=== PATIENT | male | born 1975 | race Caucasian/White ===

== ENCOUNTER 2020-04-18 17:52 | Emergency (ER) | payer MEDICARE, MEDICAID, SELFPAY ==
[2020-04-18 18:48] VITALS: BP 119/61; PULSE 65; RESP 19; RESP 20; TEMP 37.3; O2SAT 97; BMI 18.7
--- NOTE | 2020-04-18 18:55 | XR_ITS ---
EXAMINATION: XR CHEST CLINICAL INFORMATION: Coughing. COMPARISON: None TECHNIQUE: Frontal view of the chest was obtained. FINDINGS: The lungs are well-expanded and clear of acute pneumonic process. There is minimal prominent interstitial markings in both lungs. The heart size and pulmonary vascularity is normal. No gross bony abnormality seen. XR/XR chest 1V IMPRESSION: No acute pneumonic consolidation. Minimal prominent interstitial markings in both lungs.
--- NOTE | 2020-04-18 19:34 | ED_ITS ---
HPI - General Adult General Chief complaint: General Medical Stated complaint: covid symptoms Source: patient Mode of arrival: ambulatory Limitations: no limitations History of Present Illness HPI narrative: Patient presents to ED for URI symptoms. Patient states coughing, diarrhea, body aches, chills, and subjective fevers. Patient states this has been occurring 3 days. Patient states no shortness of breath, swelling of lower extremity, calf pain, or weakness. Related Data Previous Rx's Medication Instructions Recorded albuterol sulfate 2 puff INHALATION QID PRN #18 g 04/18/20 benzonatate [Tessalon Perles] 100 mg PO TID PRN #15 cap 04/18/20 prednisone 40 mg PO DAILY 5 Days #10 tab 04/18/20 Allergies Allergy/AdvReac Type Severity Reaction Status Date / Time No Known Allergies Allergy Verified 04/18/20 18:55 Review of Systems Review of Systems: Yes all other systems are reviewed and are negative Constitutional: Constitutional: Reports as per HPI, Reports no additional constitutional complaints, Reports body ache(s), Reports chills and Reports fever(s) Eyes: Eyes: Reports as per HPI and Reports no additional eye complaints ENT: Reports system reviewed and no additional complaints, except as documented and Reports as per HPI Cardiovascular: Cardiovascular: Reports as per HPI, Reports no additional cardiovascular complaints, Denies chest pain, Denies chest pain at rest, Denies chest pain with activity, Denies Epigastric Pain, Denies dyspnea on exertion, Denies orthopnea and Denies paroxysmal nocturnal dyspnea Respiratory: Respiratory: Reports as per HPI, Reports no additional respiratory complaints, Reports chest congestion, Reports cough and Denies dyspnea on exertion Gastrointestinal: Gastrointestinal: Reports as per HPI, Reports no additional gastrointestinal complaints, Denies abdominal pain and Reports diarrhea Genitourinary: Genitourinary: Reports no additional male genitourinary complaints and Reports as per HPI Musculoskeletal: Musculoskeletal: Reports no additional musculoskeletal complaints and Reports as per HPI Neurologic: Reports system reviewed and no additional complaints, except as documented and Reports as per HPI Psychiatric: Psychiatric: Reports no additional psychiatric complaints and Reports as per HPI [facility] Social History Social History Alcohol intake: never Smoked in Last 30 Days: No Use of substances other than those prescribed or required for medical reasons: No Advance Directives: No Advance Directives Information Provided: No Physical Exam Vital Signs: Vital Signs: Last Vital Signs Temp 99.1 F 04/18/20 18:48 Pulse 65 04/18/20 18:48 Resp 20 04/18/20 18:48 BP 119/61 04/18/20 18:48 Pulse Ox 97 04/18/20 18:48 Body Mass Index 18.7 Const: General: cooperative, healthy appearing, comfortable, no acute distress, well developed, alert, awake and Physically active Orientation/consciousness: patient oriented x3 HENMT: Head: Yes normal to inspection, Yes No palpable skull fracture present, Yes normocephalic and Yes atraumatic Eyes: General: appearance normal, both eyes and all related structures Neck: Neck: Yes normal visual inspection, Yes full ROM, Yes no lymphadenopathy, Yes no meningeal signs, Yes trachea midline, Yes supple and No tender Chest: Chest palpation & inspection: normal inspection of the chest and normal palpation of entire chest wall Resp: Effort & Inspection: normal respiratory effort and able to speak in complete sentences Auscultation: clear to auscultation bilaterally and wheezes expiratory wheezes Cardio: Jugular venous distension: no JVD Heart sounds: S1 normal heart sound present and S2 normal heart sound present GI: Inspection: Yes normal to inspection and No abdominal wall ecchymosis Palpation (GI): Soft to palpation, not firm, nontender, no guarding and not rigid : General: No CVA tenderness and Yes no CVA tenderness Back/Spine/Pelvis: Back: no CVA tenderness, No CVA tenderness and No back tenderness Skin: General skin exam: no rashes or lesions noted and elasticity normal Neuro: General: patient oriented x3, no meningeal signs and CN's II-XI intact bilaterally Extrem: General: Yes normal to inspection and Yes full ROM Psych: Appearance: grossly normal, well kempt and not disheveled Course Course Course Narrative: Have mild expiratory wheezing. Patient admits to history of asthma but has no steroids or albuterol inhaler. Patient will be sent for chest x-ray to rule out any pneumonia. Patient will be swabbed for COVID-19 virus Reevaluation(s) Reevaluation #1: COVID swab pending. Patient does not want to wait for the results. Patient will be discharged with Tessalon Perles, albuterol, and prednisone Time: 19:46 Reevaluation #2: Patient was was called and informed his COVID swab was negative. Patient was told that although his COVID swab is negative if he still having symptoms he should continue quarantine and return to the ED if his symptoms worsen. Time: 23:02 Medical Decision Making MDM Narrative Medical decision making narrative: URI. Viral syndrome. Asthma exacerbation Lab Data Labs: Lab Results 04/18/20 Range/Units 19:14 Coronavirus (PCR) NEGATIVE (Negative) Influenza Type A (PCR) NEGATIVE (Negative) Influenza Type B (PCR) NEGATIVE (Negative) RSV RNA Qual (PCR) NEGATIVE (Negative) Discharge Plan Discharge Clinical Impression: Acute viral syndrome, Upper respiratory infection, Asthma Patient Disposition: Home, Self-Care Instructions: Asthma (ED), Viral Syndrome (ED) Additional Instructions: Return to the ED immediately for any chest pain, shortness of breath, dizziness, weakness, coughing up blood, swelling of lower extremities, calf pain, or any other concerning symptoms. Your COVID testing is pending. If the COVID test come back negative and he still having symptoms or it worsens recommend quarantine. Please follow-up with PCP Prescriptions: New albuterol sulfate 90 mcg/actuation HFA aerosol inhaler 2 puff inhalation QID PRN (Reason: asthma) Qty: 18 RF: 0 prednisone 20 mg tablet 40 mg PO DAILY 5 Days Qty: 10 RF: 0 benzonatate [Tessalon Perles] 100 mg capsule 100 mg PO TID PRN (Reason: cough) Qty: 15 RF: 0 Interventions: ED Discharge Assessment Last Done: 04/18/20 20:03 Discharge Date/Time: 04/18/20 20:14 Print Language: [place]
[2020-04-18 20:56] LABS: Influenza A PCR NEGATIVE (Negative); Influenza B PCR NEGATIVE (Negative); Resp Syncy Virus RNA Qual PCR NEGATIVE (Negative); SARS COV2 PCR INHOUSE NEGATIVE (Negative)
== END 2020-04-18 20:14 | disposition home or self-care (01) ==
PROVIDERS: Physician Assistant; Emergency Provider Emergency Medicine
DX: B34.9 Viral infection, unspecified (principal); J06.9 Acute upper respiratory infection, unspecified; M79.10 Myalgia, unspecified site; R50.9 Fever, unspecified; Z20.822 Contact with and (suspected) exposure to COVID-19
CPT/HCPCS: 0241U; 36415; 71045; 99283; 99284